=== PATIENT | male | born 1960 | race Caucasian/White ===

== ENCOUNTER 2022-03-26 13:19 | Day surgery (SDC) | payer OTHER ==
[~2022-03-26] VITALS: Ht 182.9 cm; Wt 162.3 kg
[2022-03-26] MEDS ORDERED: METF500 PO (13:58)
[2022-03-26] MEDS ORDERED: ASPI81CH PO (13:58)
[2022-03-26] MEDS ORDERED: GABA300 PO (13:59)
[2022-03-26] MEDS ORDERED: FINA5 PO (13:59)
[2022-03-26] MEDS ORDERED: COPAXONE40 MG/1 ML SC (14:00)
[2022-03-26] MEDS ORDERED: NOVOLOG FL100 UNIT/3 SQ (14:01)
[2022-03-26] MEDS ORDERED: LEVSOD75 SC (14:01)
[2022-03-26] MEDS ORDERED: Prinivil10 MG PO (14:02)
[2022-03-26] MEDS ORDERED: METO50ER PO (14:02)
[2022-03-26] MEDS ORDERED: OMEP20ER PO (14:02)
[2022-03-26] MEDS ORDERED: Crestor40 MG PO (14:03)
--- NOTE | 2022-03-26 17:44 | NUR ---
REPORT GIVEN TO OTHER RN'S ASSUMING CARE OF PT AT THIS TIME.
--- NOTE | 2022-03-26 18:09 | NUR ---
PT DISCHARGED TO [facility]RIENDS VEHICLE. DR. ARRIETA CONTACTED ABOUT PRESCRIPTION BEING SENT TO [facility] AND THEY ARE CLOSED. SHE WILL DROP RX TO [facility] AND PT TO [facility] THERE. CAREGIVER, ZEUS ADVISED.
--- NOTE | 2022-03-27 15:07 | NUR ---
03/27/22 1507 Lisa Barron VERIFICATIONS: EDIT CHART.
== END 2022-03-26 23:08 | disposition home or self-care (01) ==
LOC: ORSCMMR 13:19 → ORD 17:30 → ORSCMMR 23:08
PROVIDERS: Orthopaedic Surgery
PROC: 0QSK04Z Reposition Left Fibula with Internal Fixation Device, Open Approach (ICD-10-PCS; principal; 2022-03-26 17:15)
DX: S82.841A Displaced bimalleolar fracture of right lower leg, initial encounter for closed fracture (principal); I10 Essential (primary) hypertension; I25.10 Atherosclerotic heart disease of native coronary artery without angina pectoris; G47.33 Obstructive sleep apnea (adult) (pediatric); E11.9 Type 2 diabetes mellitus without complications; K21.9 Gastro-esophageal reflux disease without esophagitis; Z79.4 Long term (current) use of insulin; G35 Multiple sclerosis; E66.01 Morbid (severe) obesity due to excess calories; Z68.42 Body mass index [BMI] 45.0-49.9, adult; Z79.899 Other long term (current) drug therapy; Z79.84 Long term (current) use of oral hypoglycemic drugs; Z79.82 Long term (current) use of aspirin
CPT/HCPCS: 82947; A9270; C1713; J0690; J1100; J1885; J2270; J2405; J2704; J3010; J7120

== ENCOUNTER 2022-10-16 11:21 | Day surgery (SDC) | payer OTHER ==
[~2022-10-16] VITALS: Ht 182.9 cm; Wt 159.1 kg
[~2022-10-16 11:21] MED LIST: ASPI81CH PO; COPAXONE40 MG/1 ML SC; Crestor40 MG PO; FINA5 PO; GABA300 PO; LEVSOD75 SC; METF500 PO; METO50ER PO; NOVOLOG FL100 UNIT/3 SQ; OMEP20ER PO; Prinivil10 MG PO
--- NOTE | 2022-10-16 13:18 | NUR ---
10/16/22 1318 Mary Murillo TETRACAINE AND PLEGETT PER ORDERS PATIENT CHEM BG CHECKED UPON ARRIVAL TO PRE-OP BECAUSE PATIENT STATED HE FELT WEAK AND THAT HIS BLOOD SUGAR WAS LOW. BLOOD SUGAR WAS 103, PATIENT STATED HIS NORMAL WAS 150'S. WHEN DISCUSSING HIS MEDICAITON LIST, RN WAS MADE AWARE THAT HE TOOK HIS INSULIN THIS MORNING. ANOTHER BLOOD SUGAR CHECK AT 1226 RESULTED IN 95, THEN AT 1239 WAS 97. PATIENT REPORTED HIS SYMPTOMS REMAINED THE SAME AND DEVELOPED NO FUTHER SYMPTOMS. RN CHECKED ON PATIENT FREQUENTLY WHILE AWAITING ARRIVAL OF ANESTHESIA TO INFORM OF THE SITUATION. 1308: RN RECIEVED VERBAL ORDER FOR 1/2 AMPULE (25ML) OF D50 NOW FROM DR COLIN BECAUSE PATIENT FEELING WEAK. 25 ML D50 GIVEN TO PATIENT IV.
[2022-10-16 15:05] VITALS: BP 125/73
== END 2022-10-16 14:00 | disposition home or self-care (01) ==
LOC: ORSCSDS 11:21
PROVIDERS: Ophthalmology
PROC: 08RK3JZ Replacement of Left Lens with Synthetic Substitute, Percutaneous Approach (ICD-10-PCS; principal; 2022-10-16 13:00)
DX: E11.36 Type 2 diabetes mellitus with diabetic cataract (principal); H25.12 Age-related nuclear cataract, left eye; H52.202 Unspecified astigmatism, left eye; Z96.1 Presence of intraocular lens; E03.9 Hypothyroidism, unspecified; E78.5 Hyperlipidemia, unspecified; I10 Essential (primary) hypertension; Z79.4 Long term (current) use of insulin; Z79.899 Other long term (current) drug therapy; Z79.82 Long term (current) use of aspirin; G47.33 Obstructive sleep apnea (adult) (pediatric); I25.10 Atherosclerotic heart disease of native coronary artery without angina pectoris; E66.01 Morbid (severe) obesity due to excess calories; Z68.43 Body mass index [BMI] 50.0-59.9, adult
CPT/HCPCS: 82947; J1100; J2001; J2250; J2405; J2704; J3010; J3301; J7040; V2632

== ENCOUNTER 2023-02-15 08:47 | Day surgery (SDC) | payer OTHER ==
[~2023-02-15] VITALS: Ht 182.9 cm; Wt 169.4 kg
[~2023-02-15 08:47] MED LIST changes: +INSDET100 SC; -NOVOLOG FL100 UNIT/3 SQ
[2023-02-15 09:16] VITALS: BP 142/83
--- NOTE | 2023-02-15 09:43 | NUR ---
02/15/23 [address] GEORGES ANESTHESIA RECORD.
[2023-02-15 10:00] VITALS: BP 133/77
[2023-02-15 10:15] VITALS: BP 142/94
[2023-02-15 10:30] VITALS: BP 136/69
--- NOTE | 2023-02-15 10:32 | NUR ---
DISCHARGE NOTE\ PT A&OX4, BREATHING RA, VSS, TOLERATING PO FLUIDS. NO COMPLAINTS. Discharge instructions reviewed with patient. Patient verbalizes understanding. Copy given to patient to take home.PT DRESSED INDEPENDENTLY C RN AT BEDSIDE. NO ABDOMINAL PAIN OR TENDERNESS. Discharged via wheelchair to private car for ride home.
== END 2023-02-15 10:30 | disposition home or self-care (01) ==
LOC: ORSCMMR 08:47 → ORD 10:30
PROVIDERS: Internal Medicine Gastroenterology
PROC: 0DB58ZX Excision of Esophagus, Via Natural or Artificial Opening Endoscopic, Diagnostic (ICD-10-PCS; principal; 2023-02-15 10:30)
DX: K21.9 Gastro-esophageal reflux disease without esophagitis (principal); I10 Essential (primary) hypertension; I25.10 Atherosclerotic heart disease of native coronary artery without angina pectoris; E11.9 Type 2 diabetes mellitus without complications; G35 Multiple sclerosis; G47.33 Obstructive sleep apnea (adult) (pediatric); E66.01 Morbid (severe) obesity due to excess calories; Z68.43 Body mass index [BMI] 50.0-59.9, adult; Z79.899 Other long term (current) drug therapy; Z79.84 Long term (current) use of oral hypoglycemic drugs
CPT/HCPCS: 82947; 88305; J2704; J7120